=== PATIENT | male | born 1990 | race Caucasian/White ===

== ENCOUNTER 2024-08-06 17:01 | Emergency (ER) | payer OTHER ==
[2024-08-06] MEDS ORDERED: Lidocaine 1% 20 ML MDV INFILT ONE (17:02)
[2024-08-06] MEDS: Ibuprofen 400 MG Tab PO ONE (17:49)
[2024-08-06] MEDS: Diphtheria,Pertussis(Acell),Tetanus Vaccine 0.5 ML Syringe IM ONE (17:49)
[2024-08-06] MEDS: Cephalexin 250 MG Cap PO ONE (19:11)
== END 2024-08-06 19:24 | disposition home or self-care (01) ==
LOC: FB.ED 17:01
DX: S81.812A Laceration without foreign body, left lower leg, initial encounter (principal); S83.105A Unspecified dislocation of left knee, initial encounter; Z23 Encounter for immunization; W31.1XXA Contact with metalworking machines, initial encounter
CPT/HCPCS: 12031; 73590; 90471; 90715; 99283; A9270